=== PATIENT | male | born 1985 | race Caucasian/White ===

== ENCOUNTER 2021-02-08 15:39 | Emergency (ER) | payer OTHER ==
[2021-02-08] MEDS ORDERED: Lidocaine 1% (PF) 30 ML VIAL ONE (16:40)
[2021-02-08] MEDS ORDERED: Boostrix 0.5 ML (Tdap) VIAL ONE ×2 (16:43→16:48)
[2021-02-08] MEDS ORDERED: Lidocaine 1% w/Epinephrine 1:100K 20 ML VIAL ONE (16:53)
[2021-02-08] MEDS ORDERED: Bacitracin 1 PK ONE ×2 (17:40)
[2021-02-08] MEDS ORDERED: Ibuprofen 100 MG/5 ML UDCUP ONE (17:52)
== END 2021-02-08 17:45 | disposition home or self-care (01) ==
LOC: ERS 15:39
DX: S01.112A Laceration without foreign body of left eyelid and periocular area, initial encounter (principal); W20.8XXA Other cause of strike by thrown, projected or falling object, initial encounter
CPT/HCPCS: 12011; 90471; 90715; J2001